=== PATIENT | female | born 1960 | race African-American/Black ===

== ENCOUNTER 2016-03-23 09:47 | Day surgery (SDC) | payer BC, OTHER ==
[~2016-03-23 09:47] MED LIST: LIDOCAINE 2%/EPINEPHRINE INJ 20 ML VIAL ONE
[2016-03-23] MEDS ORDERED: MIDAZOLAM 2 MG/2 ML INJ ONE (10:21)
[2016-03-23] MEDS ORDERED: TETRACAINE HCL 0.5% OPH SOLN 2 ML ONE (10:29)
[2016-03-23] MEDS ORDERED: POVIDONE-IODINE 5% OPH PREP SOLN 30 ML ONE (10:29)
[2016-03-23] MEDS ORDERED: TOBRAMYCIN SULFATE/DEXAMETH OPH OINTMENT 3.5 GM ONE (11:15)
--- NOTE | 2016-03-23 12:28 | [facility] OPERATIVE REPORT E ---
[facility] Operative Report NAME: ZENAIDA DEAL AGE: 55Y DATE OF SURGERY: 03/23/2016 ROOM: PREOPERATIVE DIAGNOSES: 1. Lesion, left eye. 2. Conjunctival cyst, left eye. POSTOPERATIVE DIAGNOSIS: @ OPERATION: Excision of conjunctival cyst, left eye. SURGEON: MARK BAILON M.D. ANESTHESIA: Topical with MAC. INDICATIONS FOR SURGERY: Constant foreign body sensation and inflammation of cystic lesion on her medial conjunctiva. TISSUE REMOVED OR ALTERED: conjunctival lesion PROCEDURE: The patient was brought to the operating room. Tetracaine drops were placed in the eye. The eye was sterilely prepped and draped in the usual manner. Local anesthesia was administered, and this consisted of 0.5 mL of 2% Xylocaine with epinephrine injected into the base of the conjunctival cyst. Using scissors, the conjunctival cyst was undermined, dissected free from the overlying conjunctiva, and removed completely. There was a small amount of pigmented area adjacent to the conjunctival cyst, which was also removed. This was placed in formalin and sent to pathology. Cautery was lightly applied to the base of the conjunctive. The sclera appeared to be without any unusual appearance. The conjunctiva was undermined freeing it up so that wound closure could be completed. This was completed with 3 interrupted buried 10-0 nylon sutures reapproximating the area of the conjunctiva. There was good hemostasis and good closure of the conjunctiva at the end of the surgery. TobraDex ointment was placed in the eye with patch shut. The patient tolerated the procedure well and was sent to the recovery room in good condition. DICTATING PHYSICIAN: AMRK BAILON M.D. [id number] PHY#: [id number] ID: [id number] JOB#: [id number] ACCT: [id number] cc:MARK BAILON M.D. > MTDD
--- NOTE | 2016-03-23 13:13 | DISCHARGE SUMMARY E ---
Discharge Summary NAME: ZENAIDA DEAL : 1960 AGE: 55Y ADMITTED: 03/23/2016 DISCHARGED: CLINICAL COURSE: The patient is a 55-year-old lady who underwent uneventful excision of conjunctival lesion left eye on 03/23/2016. DISPOSITION: She will be discharged to home. DISCHARGE INSTRUCTIONS: She was instructed to resume preop medications and to keep her eye patched for 1 day until the morning, to remove the patch and use TobraDex ointment twice daily, as well as TobraDex drops twice daily. She will follow up in my office in 1 week. DICTATING PHYSICIAN: MARK BAILON M.D. [id number] PHY#: [id number] ID: [id number] JOB#: [id number] ACCT: [id number] cc:MARK BAILON M.D. >
== END 2016-03-23 11:55 | disposition home or self-care (01) ==
LOC: SC 09:47
PROVIDERS: ATTEND Ophthalmology
PROC: 08BTXZZ Excision of Left Conjunctiva, External Approach (ICD-10-PCS; principal; 2016-03-23 11:00)
DX: H11.442 Conjunctival cysts, left eye (principal); E66.9 Obesity, unspecified; Z68.36 Body mass index [BMI] 36.0-36.9, adult
CPT/HCPCS: 88304 ×2; 68110; J2250; J3490 ×3; 140

== ENCOUNTER 2019-08-27 10:09 | Emergency (ER) | payer BC, OTHER ==
--- NOTE | 2019-08-27 10:21 | ER Document Report ---
ED Medical Screen (RME) - General Chief Complaint: Abdominal Pain Stated Complaint: ABDOMINAL PAIN Time Seen by Provider: 08/27/19 10:15 Primary Care Provider: DELMA MCDOWELL [Primary Care Provider] - Follow up as needed Mode of Arrival: Ambulatory Information source: Patient Notes: HPI; 59-year-old female intermittent right upper quadrant pain that radiates to her right flank area for the past 2 to 3 weeks. Complains of nausea but no vomiting. No medications for symptoms. Nothing makes it worse nothing makes it better describes it as a dull ache. PE: Alert and oriented x3. Lungs clear to auscultation without rales, rhonchi, wheezes. Heart: Regular rate rhythm without murmurs rubs or gallops. Abdomen: Soft nontender nondistended. Minimal discomfort to the right upper quadrant. No guarding, no rebound, bowel sounds x4. I have greeted and performed a rapid initial assessment of this patient. A comprehensive ED assessment and evaluation of the patient, analysis of test results and completion of the medical decision making process will be conducted by additional ED providers. I have specifically instructed the patient or family members with the patient to immediately return to any nursing staff should anything change in the patient's condition or with their chief complaint. TRAVEL OUTSIDE OF THE [place] IN LAST 30 DAYS: No - Related Data Allergies/Adverse Reactions: No Known Allergies Allergy (Unverified 03/18/16 14:22) Past Medical History - Past Medical History Cardiac Medical History: Denies: Hx Heart Attack, Hx Hypertension Pulmonary Medical History: Denies: Hx Asthma Neurological Medical History: Denies: Hx Cerebrovascular Accident, Hx Seizures GI Medical History: Denies: Hx Hepatitis, Hx Hiatal Hernia, Hx Ulcer Infectious Medical History: Denies: Hx Hepatitis Past Surgical History: Reports: Hx Hysterectomy. Denies: Hx Mastectomy, Hx Open Heart Surgery, Hx Pacemaker Physical Exam - Vital signs Vitals: Temp Pulse Resp BP Pulse Ox 97.8 F 86 16 154/96 H 96 08/27/19 10:14 08/27/19 10:08/27/19 10:08/27/19 10:08/27/19 10:14 Course - Vital Signs Vital signs: Temp Pulse Resp BP Pulse Ox 97.8 F 86 16 154/96 H 96 08/27/19 10:08/27/19 10:14 08/27/19 10:14 08/27/19 10:14 08/27/19 10:14 Doctor's Discharge - Discharge Referrals: LOCALMD,NO [Primary Care Provider] - Follow up as needed
[2019-08-27 10:50] LABS: ABSOLUTE EOSINOPHILS # (AUTO) 0.1 10^3/uL (0.0-0.6); ABSOLUTE LYMPHOCYTES (AUTO) 1.4 10^3/uL (0.5-4.7); ABSOLUTE MONOCYTES (AUTO) 0.4 10^3/uL (0.1-1.4); ABSOLUTE NEUT (AUTO) 4.8 10^3/uL (1.7-8.2); APPEARANCE,URINE SLIGHTLY-CLOUDY; BASOPHILS % (AUTO) 0.3 % (0-2); BILIRUBIN,URINE NEGATIVE (NEGATIVE); COLOR,URINE YELLOW; EOSINOPHILS % (AUTO) 0.9 % (0-6); GLUCOSE, URINE NEGATIVE (NEGATIVE); HEMATOCRIT 45.5 % (36.0-47.0); HEMOGLOBIN 15.7 g/dL (12.0-15.5); KETONES,URINE NEGATIVE (NEGATIVE); LEUKOCYTE ESTERASE,URINE NEGATIVE (NEGATIVE); LYMPHOCYTES % (AUTO) 21.4 % (13-45); MEAN CORPUSCULAR HEMOGLOBIN 30.8 pg (27.0-33.4); MEAN CORPUSCULAR HGB CONC 34.4 g/dL (32.0-36.0); MEAN CORPUSCULAR VOLUME 90 fl (80-97); MONOCYTES % (AUTO) 5.8 % (3-13); NITRITE,URINE NEGATIVE (NEGATIVE); PLATELET COUNT 255 10^3/uL (150-450); PROTEIN,URINE NEGATIVE (NEGATIVE); RED BLOOD COUNT 5.08 10^6/uL (3.72-5.28); RED CELL DISTRIBUTION WIDTH 12.8 % (11.5-14.0); SEGMENTED NEUTROPHILS % (AUTO) 71.6 % (42-78); TOTAL CELLS COUNTED % (AUTO) 100 %; URINE SPECIFIC GRAVITY 1.019; UROBILINOGEN,URINE NEGATIVE mg/dL (<2.0); WHITE BLOOD COUNT 6.8 10^3/uL (4.0-10.5)
[2019-08-27 11:09] LABS: ALBUMIN 4.4 g/dL (3.5-5.0); ALKALINE PHOSPHATASE 134 U/L (38-126); ANION GAP 5 (5-19); ASPARTATE AMINO TRANSFERASE 25 U/L (14-36); BILIRUBIN,TOTAL 0.7 mg/dL (0.2-1.3); BLOOD UREA NITROGEN 13 mg/dL (7-20); CALCIUM 9.7 mg/dL (8.4-10.2); CARBON DIOXIDE 28 mmol/L (22-30); CHLORIDE 106 mmol/L (98-107); GLUCOSE 110 mg/dL (75-110); POTASSIUM 3.9 mmol/L (3.6-5.0); TOTAL PROTEIN 7.4 g/dL (6.3-8.2)
--- NOTE | 2019-08-27 13:32 | ER Document Report ---
ED GI/ - General Chief Complaint: Abdominal Pain Stated Complaint: ABDOMINAL PAIN Time Seen by Provider: 08/27/19 10:15 Primary Care Provider: SUNSHINE MOLINA MD [ACTIVE STAFF] - Follow up as needed Mode of Arrival: Ambulatory Notes: 59-year-old woman presents to the emergency department with a history of right upper quadrant and shoulder pain which has been intermittent occurring at about 3 in the morning over the past few days. She was seen in her doctor's office and sent to the emergency department with the understanding she may need to have a gallbladder ultrasound done to rule out gallbladder disease. The patient denies fever, vomiting, she has had some nausea and denies active medical problems. TRAVEL OUTSIDE OF THE [place] IN LAST 30 DAYS: No - Related Data Allergies/Adverse Reactions: No Known Allergies Allergy (Unverified 03/18/16 14:22) Past Medical History - General Information source: Patient - Social History Smoking Status: Unknown if Ever Smoked Family History: Reviewed & Not Pertinent Patient has homicidal ideation: No - Past Medical History Cardiac Medical History: Denies: Hx Heart Attack, Hx Hypertension Pulmonary Medical History: Denies: Hx Asthma Neurological Medical History: Denies: Hx Cerebrovascular Accident, Hx Seizures GI Medical History: Denies: Hx Hepatitis, Hx Hiatal Hernia, Hx Ulcer Infectious Medical History: Denies: Hx Hepatitis Past Surgical History: Reports: Hx Hysterectomy. Denies: Hx Mastectomy, Hx Open Heart Surgery, Hx Pacemaker Review of Systems - Review of Systems Notes: Constitutional: Negative for fever. HENT: Negative for sore throat. Eyes: Negative for visual changes. Cardiovascular: Negative for chest pain. Respiratory: Negative for shortness of breath. Gastrointestinal: + Right upper quadrant pain Genitourinary: Negative for dysuria. Musculoskeletal: Negative for back pain. Skin: Negative for rash. Neurological: Negative for headaches, weakness or numbness. 10 point ROS negative except as marked above and in HPI. Physical Exam - Vital signs Vitals: Temp Pulse Resp BP Pulse Ox 97.8 F 86 16 154/96 H 96 08/27/19 10:14 08/27/19 10:14 08/27/19 10:14 08/27/19 10:14 08/27/19 10:14 - Notes Notes: PHYSICAL EXAMINATION: Physical Exam: General: Well-nourished well-developed 59-year-old woman in no acute distress HEENT: NC/AT, pupils equal round and reactive to light, MM moist,nares clear, oropharynx clear, airway patent Neck: supple, no adenopathy, no masses. Good range of motion Lungs: clear, no wheezing, no rales no rhonchi CVS: Regular rate and rhythm no murmur gallop or rub Abdomen: Soft, active, nontender, no masses, no hepatosplenomegaly Ext: No edema, clubbing or cyanosis. Neuro: Alert and responsive, moving all 4 extremities on command, cranial nerves intact, no focal findings Skin: Intact no open lesions, no rash PSYCH: Normal mood, normal affect. Course - Re-evaluation Re-evalutation: 08/27/19 17:20 59-year-old woman history of episodic gallbladder colic, gallbladder ultrasound reveals cholelithiasis with a thickened gallbladder wall, no fluid common bile duct is within the normal range. She has a normal white count and normal bilirubin, alkaline phosphatase is slightly elevated. I reviewed these findings with the patient and she states that she would like to have her gallbladder removed, however she went follow-up as an outpatient. She is given a prescription for Bentyl and Toradol tablets to use if she has an attack at home. She is to call the general surgeon's office to schedule an appointment and foll ow-up with regards to scheduling surgery. - Vital Signs Vital signs: Temp Pulse Resp BP Pulse Ox 98.2 F 77 16 141/84 H 97 08/27/19 17:49 08/27/19 17:49 08/27/19 17:49 08/27/19 17:49 08/27/19 17:49 - Laboratory Result Diagrams: 08/27/19 10:28 08/27/19 10:28 Laboratory results interpreted by me: 08/27/19 08/27/19 10:28 10:28 Hgb 15.7 H Alkaline Phosphatase 134 H - Diagnostic Test Radiology reviewed: Image reviewed, Reports reviewed Radiology results interpreted by me: 08/27/19 17:22 Gallbladder ultrasound: Cholelithiasis and gallbladder wall thickening without. Cholecystic fluid or positive sonographic Lopez sign. These findings are equivocal for acute cholecystitis, the tail of the pancreas was obscured by bowel and hepatic steatosis is noted. Discharge - Discharge Clinical Impression: Gallbladder disease, Gallbladder colic Cholelithiasis Qualifiers: Cholelithiasis location: gallbladder Cholecystitis presence: without cholecystitis Biliary obstruction: without biliary obstruction Qualified Code(s): K80.20 - Calculus of gallbladder without cholecystitis without obst ruction Condition: Good Disposition: HOME, SELF-CARE Instructions: Antispasmodics ([facility]), Gallbladder Disease ([facility]), Low-Fat Diet ([facility]) Additional Instructions: You were seen in the emergency department today and found to have gallstones with gallbladder wall thickening. There were no signs of gallbladder infection noted on your lab findings. You are being provided the name of the general surg sandra on-call, you can call the office to schedule an appointment for planning and discussion of a gallbladder surgery electively. You have been given a prescription for an antispasmodic medication, dicyclomine, and a medication for pain ketorolac tablets. Please take these medications as prescribed. If your symptoms are worsening or if you have other concerns you may return to the emergency department for further evaluation and treatment. HOME CARE INSTRUCTIONS & INFORMATION: Thank you for choosing us for your medical needs. We hope you're satisfied with the care you received. After you leave, you must properly care for your problem and, at the same time, observe its progress. Any condition can change. Some illnesses can change rapidly over hours or days. If your condition worsens, return to the Emergency Department or see your physician promptly. ABOUT YOUR X-RAYS AND EKG'S: If you had an EKG or X-rays taken, they have been read by the Emergency Physician. The X-rays and EKG's will also be read by a Radiologist or Instrument And Control Service Person within 24 hours. If discrepancies are noted, you will be notified by telephone. Please be certain the ED has a correct telephone number & address where you can be reached. Also, realize that some fractures or abnormalities do not show up on initial X-rays. If your symptoms continue, see your physician. ABOUT YOUR LABORATORY TEST: If you had laboratory tests, the results have been reviewed by the Emergency Physician. Some test results (for example cultures) may not be available for several days. You will be contacted if any test result shows you need additional treatment. Please be certain the ED has a correct telephone number and address where you can be reached. ABOUT YOUR MEDICATIONS: You will receive instructions on how to take your medicine on the prescription label you receive. Additional information may be provided by the Pharmacy. If you have questions afterwards, call the ED for clarification or further instructions. Some prescribed medications may cause drowsiness. Do not perform tasks such as driving a car or operating machinery without consulting your Pharmacist. If you feel you need a refill of pain medication, your condition will need re-evaluation. Please do not call for a refill of any medication. ABOUT YOUR SIGNATURE: Signature of this document acknowledges to followin. Understanding that you received emergency treatment and that you may be released before al medical problems are known or treated. Please be certain the ED has a correct phone number & address where you can be reached. 2. Acknowledgement that you will arrange for follow-up care as recommended. 3. Authorization for the Emergency Physician to provide information to your follow-up Physician in order to maximize your care. AT ANY TIME, IF YOUR SYMPTOMS CHANGE SIGNIFICANTLY OR WORSEN OR YOU DEVELOP NEW SYMPTOMS, RETURN TO THE EMERGENCY DEPARTMENT IMMEDIATELY FOR RE-EVALUATION. OUR GOAL IS TO PROVIDE EXCELLENT MEDICAL CARE! WE HOPE THAT WE HAVE MET YOUR EXPECTATIONS DURING YOUR EMERGENCY DEPARTMENT VIS IT AND THAT YOU FEEL YOU HAVE RECEIVED EXCELLENT CARE! Prescriptions: Ketorolac Tromethamine [Toradol 10 mg Tablet] 10 mg PO Q6HP PRN #14 tablet PRN Reason: Dicyclomine HCl [Bentyl 10 mg Capsule] 1 cap PO TID PRN #30 cap PRN Reason: Abdominal Cramping Referrals: SUNSHINE MOLINA MD [ACTIVE STAFF] - Follow up as needed
--- NOTE | 2019-08-27 16:38 | RADIOLOGY REPORT (SQ) ---
EXAM DESCRIPTION: U/S ABDOMEN LIMITED W/O DOP IMAGES COMPLETED DATE/TIME: 08/27/2019 4:12 pm REASON FOR STUDY: Upper quadrant abdominal pain COMPARISON: None. TECHNIQUE: Dynamic and static grayscale images acquired of the abdomen and recorded on PACS. Additio nal selected color Doppler and spectral images recorded. LIMITATIONS: None. FINDINGS: PANCREAS: The visualized portions of the pancreas appear normal. The pancreatic tail is o bscured by overlying bowel. LIVER: Increased echogenicity of hepatic parenchyma associated with attenuation of the far field. Th ere is a cyst in the left lobe of the liver that measures 1.9 x 1.8 x 1.1 cm. LIVER VASCULATURE: Hepatopetal directional flow in the portal veins. GALLBLADDER: The gallbladder is distended. The gallbladder wall is distended and filled with echogen ic calculi. The gallbladder wall is thickened measuring 4 mm. There is no pericholecystic fluid. ULTRASOUND-DETECTED LOPEZ'S SIGN: Negative. INTRAHEPATIC DUCTS AND COMMON DUCT: The common bile duct measures 4 mm in diameter. There is no dila tation of the intrahepatic bile ducts. INFERIOR VENA CAVA: Not assessed. AORTA: No aneurysm. RIGHT KIDNEY: The right kidney measures 11.1 cm in length. There is no hydronephrosis. PERITONEAL AND RIGHT PLEURAL SPACE: No ascites or effusions. OTHER: No other findings. IMPRESSION: 1. Cholelithiasis and gallbladder wall thickening without pericholecystic fluid or a pos itive sonographic Lopez's sign. These findings are equivocal for acute cholecystitis and if clinica l findings are concerning for diagnosis then consider correlation with HIDA. 2. The pancreatic tail is obscured by overlying bowel. 3. Hepatic steatosis. TECHNICAL DOCUMENTATION: JOB ID: [id number] 2010 [employer]- All Rights Reserved Reading location - IP/workstation name: [email or web address]
[2019-08-27 17:50] VITALS: BP 141/84
== END 2019-08-27 17:51 | disposition home or self-care (01) ==
LOC: ER 10:09
DX: K80.20 Calculus of gallbladder without cholecystitis without obstruction (principal); K76.0 Fatty (change of) liver, not elsewhere classified; R11.0 Nausea; M25.519 Pain in unspecified shoulder; R74.8 Abnormal levels of other serum enzymes
CPT/HCPCS: 36415; 76705; 80053; 81001; 83690; 85025; 99284